=== PATIENT | female | born 1935 | race Caucasian/White ===

== ENCOUNTER 2016-12-18 13:28 | Inpatient (IN) | payer OTHER ==
[~2016-12-18] VITALS: Wt 68.0 kg
--- NOTE | ~2016-12-18 | PR ---
[place], [place] PROGRESS NOTE [id number] UN[facility] #: [id number] ROOM: 311 DOCTOR: Radha RG,JANI BIRTHDATE: [birth year] DOS: 12/24/2016 The patient seen and spoke with the staff. Per staff, the patient slept well last night. She did not eat at all yesterday, but she is less sleepy today. The patient was pleasant, cooperative. She was in a Carmen chair. She was sitting in the day area. When I asked how she was doing, she said that "I am ill." When I asked her to elaborate, she did not answer any of my questions afterwards. MENTAL STATUS EXAMINATION: The patient was alert, but not forthcoming, not able to do any full mental status examination as she did not speak with me fully. ASSESSMENT: 1. Dementia with behavioral disturbances. 2. Impulse control disorder. PLAN: 1. Continue current medication and care. 2. Encourage p.o. intake. 3. Continue redirection. JANI RG MD CM:JEEVAN 31 0 Radha RG 12/25/16201 interface
--- NOTE | ~2016-12-18 | PR ---
[place], [place] PROGRESS NOTE NAME: LUCILLE EMERY UNIT #: [id number] ROOM: 311 DOCTOR: Radha RG,JANI BIRTHDATE: [birth year] DOS: 12/27/2016 PSYCHIATRIC PROGRESS NOTE SUBJECTIVE: The patient seen and spoke with the staff. Per staff, the patient got p.r.n. Ativan last night. She ate a pudding and applesauce and reportedly, she is doing much better. She is much more interactive now. Her IV fluid also got ended last night. Reportedly, she is getting IV antibiotic every day. The patient was in the day area. She was in a Carmen chair. I tried to wake her up, but not able to do so. She was in a deep sleep because she got the Ativan p.r.n. last night. She does not seem to be in any distress. MENTAL STATUS EXAMINATION: Not able to do for full mental status examination as the patient was in deep sleep. ASSESSMENT: Dementia with behavioral disturbances. PLAN: 1. Continue current medication and care. 2. Continue redirection. 3. Supportive care. 4. Medical team is following for any acute medical issues. JANI RG MD CM:PNTRANS [id number] Radha RG 12/27/16 1036 interface
--- NOTE | ~2016-12-18 | PR ---
[place], [place] PROGRESS NOTE NAME: LUCILLE EMERY UNIT #: [id number] ROOM: 311 DOCTOR: Radha RG,JANI BIRTHDATE: [birth year] DOS: 12/29/2016 PSYCHIATRIC PROGRESS NOTE SUBJECTIVE: The patient seen and spoke with the staff. Per staff, the patient is eating more, much more animated than before. She ate 10% of lunch, 10% of dinner, 550 mL of liquid. She also got some p.r.n. Ativan because of increased agitation, because she was combative with care. The patient was sitting in a Carmen chair in front of the nursing station. When I called her name, she got up and said yes, but then did not answer any of my questions, even though her eyes were open. MENTAL STATUS EXAMINATION: The patient was alert, not able to do full mental status examination as patient refused to talk with me. PLAN: 1. Continue current medication and care. 2. Continue redirection. 3. Supportive care. JANI RG MD CM:JEEVAN [id number] 1254 Radha RG 12/30/16 1254 interface
--- NOTE | ~2016-12-18 | PR ---
[place], [place] PROGRESS NOTE NAME: LUCILLE EMERY UNIT #: [id number] ROOM: 311 DOCTOR: Radha RG,JANI BIRTHDATE: [birth year] DOS: 12/26/2016 PSYCHIATRIC PROGRESS NOTE SUBJECTIVE: The patient seen and I spoke with the staff. Per staff, the patient is not eating at all, not arousable earlier in the day, but she was seen by the medical team and she was started on IV fluid. The medical team actually felt that she is still appropriate for the psychiatric unit and reportedly do not want to admit her to the Medical floor. The patient was in her room. She was talking. She looks much brighter today as probably she was getting the IV fluid. When I called her name, she did not answer any of my question, but apparently she was talking to herself, which is mostly nonsensical. As per the nursing staff, she was catheterized and urine culture and sensitivity was sent. MENTAL STATUS EXAMINATION: The patient was somewhat sleepy, talking to herself and did not seem to be in any distress. She is not able to do the full mental status examination. ASSESSMENT: Dementia with behavioral disturbances; impulse control disorder per history. PLAN: 1. I already have discontinued all of her psychotropic medications, which includes Depakote. 2. Need to get supportive care. 3. Medical team is already involved. I will call them again and we will talk with house carpenter helper to see if there is any need for the patient to transfer to the Medical floor or not. JANI RG MD CM:JEEVAN 0 Radha RG 12/27/16201 interface
--- NOTE | ~2016-12-18 | WRIGHTHP ---
[place], [place] PATIENT HISTORY AND PHYSICAL EXAM [id number] UN[facility] #: [id number] ROOM: 311 DOCTOR: LYNN WADE MD BIRTHDATE: [birth year] DOS: 12/18/2016 CHIEF COMPLAINT: "Hey, I need help. I have to pee." HISTORY OF PRESENT ILLNESS: This is a 81-year-old white female who was brought into the hospital by her due to worsening behaviors. The patient apparently has a diagnosis of Alzheimer's dementia and is becoming increasingly more difficult to be cared for at home. While at home, she is becoming both verbally and physically aggressive and frankly combative. She is putting herself and others at harm. Her behavior has become so progressively worse that her stated on admission, "I just can't handle her" and they are seeking crisis stabilization as well as possible placement. PAST MEDICAL HISTORY: Remarkable for GERD, chronic pain, hypertension, hypothyroidism, irritable bowel syndrome and the diagnosis of Alzheimer's dementia. There is also a possible history of either cervical or uterine cancer. MENTAL STATUS: The patient is alert and oriented to self only. She was not able to engage readily in meaningful conversation and tended to be fragmented and disjointed. Her speech with me was very disorganized. More often than not, she did not answer my questions, but rather went off on a tangent of her own. Her responses again were short and simple. Thoughts fragmented. There are no symptoms suggestive of hypomania or sophy. There are no auditory or visual hallucinations. No delusions were voiced. There is no paranoia. She does process extremely slowly. Short and intermediate memory are grossly disturbed. DIAGNOSIS: Impulse control disorder, not otherwise specified, and Alzheimer's dementia. PLAN: I have discontinued her Aricept in lieu of Exelon patch. I will rapidly titrate this to its maximum dose to improve and sustain memory, behavior and ADLs. I have continued her on Namenda 10 mg twice daily. I have started her on Depakote 250 mg twice daily and 500 mg at bedtime to decrease some of her impulsivity and aggressiveness. We will engage her in individual and tavares milieu activity. I will discuss the case with social service technician and work on possible placement for her. We will discharge then to the least restrictive environment when psychiatrically stable. [place], [place] PATIENT HISTORY AND PHYSICAL EXAM NAME: LUCILLE EMERY UNIT #: [id number] ROOM: 311 DOCTOR: LYNN WADE MD BIRTHDATE: [birth year] LYNN WADE MD CM:HISPHYS:PATIENT HISTORY AND PHYSICAL EXAMINATION 4 LYNN WADE MD 12/19/16744 interface
--- NOTE | ~2016-12-18 | PR ---
[place], [place] PROGRESS NOTE [id number] UNIT #: [id number] ROOM: 311 DOCTOR: Radha RG,JANI BIRTHDATE: [birth year] DOS: 12/23/2016 PSYCHIATRIC PROGRESS NOTE. SUBJECTIVE: The patient seen and I spoke with the staff. Per staff, the patient slept well last night, took all of her medications, but this a.m. refused all of her medication and seems to be confused. Per nursing staff, she is not eating her full meals, sometimes she is skipping her meal also. No overt behavioral problems or issues. The patient was in the Carmen chair in front of the nursing station. She was in deep sleep, not able to wake her up. She just looked at me for a brief period, but then fall back to sleep again. MENTAL STATUS EXAMINATION: Not able to do the full mental status examination because the patient was sleeping. ASSESSMENT: 1. Dementia with behavioral disturbances. 2. Impulse control disorder. PLAN: 1. I will reduce her Depakote. 2. Continue other medication. 3. Continue redirection. 4. Intake and output check. 5. Need to involve the medical team and make sure the patient is not medically compromised. JANI RG MD CM:PNEPIFANIO [id number] Radha RG 12/23/16 2347 interface
--- NOTE | ~2016-12-18 | PR ---
[place], [place] PROGRESS NOTE NAME: LUCILLE EMERY UNIT #: [id number] ROOM: 311 DOCTOR: Radha RG,JANI BIRTHDATE: [birth year] DOS: 12/28/2016 PSYCHIATRIC PROGRESS NOTE SUBJECTIVE:. The patient seen and spoke with the staff. Per staff, the patient is doing "okay." She did not eat her breakfast or lunch yesterday or the breakfast today. She ate dinner, 15% of dinner and she was not getting up this morning. Her blood pressure was 128/76 and pulse was 84, pulse ox is more than 96. When I went to her room, the patient was in her bed. I was not able to wake her up. When the nursing went and tried to wake her up, she got up and asked us that are we going to keep her over here. I told the nursing staff to wake her up and take her to the day area. Later on, the nursing staff came back and told me that in the process of getting up to the Carmen chair, the patient became very alert, asking for cookies and getting little irritated when they were trying to move her to one place to other. MENTAL STATUS EXAMINATION: The patient was pleasant, cooperative. She was alert. She did not answer how she is doing when asked about mood. She looks comfortable, not in any distress. She does not seem to be responding to stimuli. No overt delusional paranoid noted. She is not suicidal or homicidal. Insight and judgment impaired. ASSESSMENT: Dementia with behavioral disturbances, impulse control disorder per history. PLAN: 1. Continue current medication and care. 2. Continue redirection. 3. Supportive care. 4. Encourage p.o. intake. 5. Medical team is following due to her medical issues. [place], [place] PROGRESS NOTE NAME: LUCILLE EMERY UNIT #: [id number] ROOM: 311 DOCTOR: Radha RG,JANI BIRTHDATE: [birth year] JANI RG MD CM:JEEVAN 1040 1646 aRdha RG 12/28/16 1646 interface
--- NOTE | ~2016-12-18 | EKG ---
[place], [place] ELECTROCARDIOGRAM REPORT NAME: LUCILLE EMERY UNIT #: [id number] ROOM: 311 DOCTOR: NICK SOLORZANO MD BIRTHDATE: [birth year] DOS: 12/18/2016 TIME: 1356 hours. FINDINGS: 1. Normal sinus rhythm at 78 beats per minute. 2. The tracing is normal. 3. No previous tracing is available for comparison. NICK SOLORZANO MD CM:EKGRPT:ELECTROCARDIOGRAM REPORT [id number] NICK SOLORZANO MD
--- NOTE | ~2016-12-18 | PR ---
[place], [place] PROGRESS NOTE [id number] UNIT #: [id number] ROOM: 311 DOCTOR: LYNN WADE MD BIRTHDATE: [birth year] DOS: 12/20/2016 CHIEF COMPLAINT: "Hey, Hey honey help me here, help me." SUMMARY OF THE VISIT: The patient was interviewed. She sat in the group therapy room in a Carmen chair with her breakfast in front for her. The breakfast had been cut for her. She, however, was very confused and disoriented and did not seem to know what to do with her breakfast, instead she kept yelling wildly. Even when I approached her and attempted to redirect, she continued to yell in a very loud voice for assistance. She did eventually calm when I told her I would send in 1 of the aides to help her. Nurses report she continues to exhibit extreme mood lability and agitation that tends to worsen in the evening hours. MENTAL STATUS: She is alert and oriented to self only. She is very confused and disoriented. Her responses often have nothing to do with the questions asked of her. She is fragmented and disjointed easily agitated, but did redirect. Memory is very poor. PLAN: I will go ahead and increase her Depakote from 250 mg twice a day and 500 mg at bedtime to 500 mg 3 times a day given her extreme mood lability. I will also increase Exelon patch from 4.6 to 9.5 mg a day as I trend up to the 13.3 mg target dose to improve or maintain ADLs, behavior and cognition. Screening examinations upon admission showed her to have a low normal B12 level of 294, which I will go ahead and treat prevent B12 deficiency, dementia. I will give her an injection of vitamin B12 of 1000 mcg IM today. We will engage her in individual and tavares milieu activity, returning to the least restrictive environment when stable. LYNN WADE MD CM:PNTRANS 0836 131 LYNN WADE MD 12/20/16 1312 interface
--- NOTE | ~2016-12-18 | PR ---
[place], [place] PROGRESS NOTE [id number] UN[facility] #: [id number] ROOM: 311 DOCTOR: Radha RG,JANI BIRTHDATE: [birth year] DOS: 12/25/2016 Patient seen and spoke with the staff. Per staff, patient ate 10% of her dinner last night, also finished a whole Boost. She slept all night. No behavioral problems or issues. The patient was in the day area. She was in deep sleep, not able to wake her up. She seems to be not in any distress. It should be noted that the patient was seen by the medical team for the fact that she was not eating well, but per medical team patient is doing okay. There is no acute concern. MENTAL STATUS EXAMINATION: Not able to do a full mental status examination. ASSESSMENT: 1. Dementia with behavioral disturbances. 2. Impulse control disorder. PLAN: 1. Continue current medication and care. 2. Continue redirection. 3. Encourage p.o. intake. JANI RG MD CM:JEEVAN 52 Radah RG 12/26/1653 interface
--- NOTE | ~2016-12-18 | PR ---
[place], [place] PROGRESS NOTE NAME: LUCILLE EMERY UNIT #: [id number] ROOM: 311 DOCTOR: LYNN WADE MD BIRTHDATE: [birth year] DOS: 12/21/2016 CHIEF COMPLAINT: "Hey, help me here." SUMMARY OF THE VISIT: The patient was interviewed as she sat in the dining area near peers. She engaged greatly in conversation. She was fairly pleasant, but confused. Her responses did not always match the question asked of her. She exhibited no agitation towards me. Nurses' however, report she is very resisted to care and is noncompliant with multiple aspects of her care including her medication, which she often spits out. She has not been having a good oral intake either and has not been eating well and nurses do request some boost or Ensure or some type of nutritional supplement. MENTAL STATUS: She is alert and oriented to person, possibly place, but not time. Mood does seem to be somewhat depressed and with a constricted range. Affect at times is inappropriate. Her responses are disjointed and fragmented, short and simple. There is no overt hypomania or psychosis. Short term memory is poor and she processes slowly. PLAN: I will maintain her current level of Exelon patch and Namenda. I will add Remeron 15 mg at bedtime. We will check with the pharmacy to see if we can get the sold tape. We will check a valproic acid level in the a.m. and also order boost or a nutritional supplement to increase her calorie intake. LYNN WADE MD CM:PNTRANS 0845 LYNN WADE MD 12/21/1625 interface
--- NOTE | ~2016-12-18 | DS ---
[place], [place] DISCHARGE SUMMARY NAME: LUCILLE EMERY [facility] #: [id number] UNIT #: [id number] ROOM: 311 DOCTOR: aRdha RG,JANI BIRTHDATE: [birth year] DOS: 12/31/2016 PSYCHIATRIC DISCHARGE SUMMARY HISTORY OF PRESENT ILLNESS: This is a 81-year-old white female who was brought into the hospital by her due to worsening behaviors. The patient apparently has a diagnosis of Alzheimer's dementia and is becoming increasingly more difficult to be cared for at home. While at home, she is becoming both verbally and physically aggressive and frankly combative. She is putting herself and others at harm. Her behavior has become so progressively worse that her stated on admission, "I just can't handle her" and they are seeking crisis stabilization as well as possible placement. PAST MEDICAL HISTORY: Remarkable for GERD, chronic pain, hypertension, hypothyroidism, irritable bowel syndrome and the diagnosis of Alzheimer's dementia. There is also a possible history of either cervical or uterine cancer. MENTAL STATUS: The patient is alert and oriented to self only. She was not able to engage readily in meaningful conversation and tended to be fragmented and disjointed. Her speech with me was very disorganized. More often than not, she did not answer my questions, but rather went off on a tangent of her own. Her responses again were short and simple. Thoughts fragmented. There are no symptoms suggestive of hypomania or sophy. There are no auditory or visual hallucinations. No delusions were voiced. There is no paranoia. She does process extremely slowly. Short and intermediate memory are grossly disturbed. HOSPITAL COURSE: The patient got admitted for stabilization. She was started on Depakote twice a day, which initially she tolerated well, but later on, the Depakote made her very sleepy. She was seen by the medical team during her stay. She had some infective process going on. She was started on antibiotic. During her stay, the patient initially was very sedated. She was not eating well. She was not drinking well also, so we placed her on I's and O's. We discontinued all of her psychotropic medication. She was started on IV fluids also by the medical team. Gradually, the patient turned around from her sedation point of view, she became more responsive. She started eating and drinking well. In the meantime, the patient started having some medical issues. There was blood in the urine. The medical team was consulted and the medical team felt that it will be in her best interest if she gets admitted to the medical floor. The treatment team also felt that the patient can be discharged to the medical floor on 12/31/2016. MENTAL STATUS EXAMINATION AT DISCHARGE: The patient was pleasant, cooperative. She was alert. She described her mood as, "I'm fine." Affect was flat. Thought processes with confabulation. Denied auditory or visual hallucination. No overt delusion noted. Denied suicidal ideation, intent or plan. She also denied homicidal ideation, intent or plan. Insight and judgment impaired. ASSESSMENT: Dementia with behavioral disturbances. [place], [place] DISCHARGE SUMMARY NAME: LUCILLE EMERY UNIT #: [id number] ROOM: [facility] DOCTOR: Radha RG MAHBOOB BIRTHDATE: [birth year] PLAN: 1. Continue current care. 2. Transfer the patient to the medical floor for further care and stabilization. JANI RG MD CM:ALLY [id number] [id number] Radha RG 01/01/17 0322 interface
--- NOTE | ~2016-12-18 | PR ---
[place], [place] PROGRESS NOTE [id number] UN[facility] #: [id number] ROOM: 311 DOCTOR: Radha RG,JANI BIRTHDATE: [birth year] DOS: 12/30/2016 PSYCHIATRIC PROGRESS NOTE SUBJECTIVE: The patient seen and spoke with the staff. Per staff, the patient is doing well. No behavioral problems or issues. She ate almost 40% yesterday. She is also eating her Boost. She still yells out at times, but no other behavioral problems or issues. She is easily redirectable. She is still getting her antibiotic. The patient was pleasant and cooperative. She was in a Carmen chair in the dining area. She was in a deep sleep. I was not able to wake her up. She does not seem to be in any distress. MENTAL STATUS EXAMINATION: Not able to do the full mental status examination as she was in deep sleep. She seems not to be in any distress. ASSESSMENT: Dementia with behavioral disturbances. PLAN: 1. Continue current medication and care. 2. Continue redirection. 3. Supportive care. JANI RG MD CM:JEEVAN 0911 1322 Radha RG 12/30/16 1321 interface
[2016-12-18 13:36] VITALS: BP 118/60
[2016-12-18 14:12] LABS: MEAN CELL VOLUME 93.9 fl (81.0-99.0); MEAN CORPUSCULAR HGB 30.4 pg (27.0-31.0); MEAN CORPUSCULAR HGB CONC 32.4 g/dl (33.0-37.0); MEAN PLATELET VOLUME 10.2 fl (9.6-12.3); PLATELET COUNT AUTOMATED 186 10*3/uL (130-400); RED BLOOD COUNT 3.62 10*6/uL (4.10-5.10); RED CELL DISTRI WIDTH 13.4 % (0-14.5); WHITE BLOOD COUNT 5.5 10*3/uL (4.8-10.8)
[2016-12-18 14:18] LABS: PROTHROMBIN TIME 10.3 SECONDS (9.0-12.4)
[2016-12-18 14:29] LABS: ALBUMIN 3.1 gm/dl (3.1-4.5); ALKALINE PHOSPHATASE 93 U/L (45-117); BILIRUBIN, TOTAL 0.4 mg/dl (0.2-1.0); BUN 21 mg/dl (7-24); CARBON DIOXIDE 26 mmol/L (21-32); CHLORIDE 112 mmol/L (98-107); CKMB 1.5 ng/ml (0.5-3.6); CPK 101 U/L (26-192); EST GLOM FILT AFRICAN AMERICAN > 60 ml/min; GLUCOSE 109 mg/dL (65-99); MAGNESIUM 2.1 mg/dL (1.5-2.1); POTASSIUM 3.8 mmol/L (3.5-5.1); SGOT/AST 20 IU/L (3-35); SGPT/ALT 19 U/L (12-78); SODIUM 142 mmol/L (136-145); TOTAL PROTEIN 6.4 gm/dL (6.4-8.2)
[2016-12-18 14:32] LABS: C-REACTIVE PROTEIN < 0.29 MG/DL (0-0.3); TROPONIN I < 0.015 ng/ml (<0.045)
[2016-12-18 15:18] LABS: BASOPHIL # 0.1 10*3/uL (0-0.1); BASOPHILS 2 % (0-1); EOSINOPHIL # 1.3 10*3/uL (0-0.4); EOSINOPHILS 23 % (1-4); LYMPHOCYTE # 1.6 10*3/uL (1.3-4.4); MONOCYTE # 0.2 10*3/uL (0.1-1.0); NEUTROPHIL # 2.3 10*3/uL (2.3-7.9); NEUTROPHILS 42 % (47-73); PLATELET SUFFICIENCY NORMAL (NORMAL); TOTAL CELLS COUNTED 100 #CELLS
[2016-12-18 15:25] VITALS: BP 132/71
[2016-12-18 15:36] LABS: BILIRUBIN NEGATIVE (NEGATIVE); BLOOD 1+ (NEGATIVE); CLARITY SL CLOUDY (CLEAR); COLOR YELLOW (YELLOW); GLUCOSE NEGATIVE (NEGATIVE); KETONE NEGATIVE (NEGATIVE); LEUKO ESTERASE NEGATIVE (NEGATIVE); NITRITE NEGATIVE (NEGATIVE); PH 5.5 (5.0-9.0); PROTEIN NEGATIVE (NEGATIVE); SPECIFIC GRAVITY >= 1.030 (1.005-1.030)
[2016-12-18 16:00] LABS: BACTERIA 2+; URINE REFLEX COMMENT YES (NO)
[2016-12-18] MEDS ORDERED: PEPCID20 MG PO (18:37)
[2016-12-18] MEDS ORDERED: NAMENDA XR21 M1 PO (18:38)
[2016-12-18] MEDS ORDERED: SYNTHROID,LEVO88 MCG PO (18:40)
[2016-12-18] MEDS ORDERED: LINZESS145 MC1 PO (18:41)
[2016-12-18] MEDS ORDERED: HALDOL0.5 MG PO (18:41)
[2016-12-18] MEDS ORDERED: PERCOCET 325 MG1 TA5 PO (18:42)
[2016-12-18] MEDS ORDERED: NORVASC5 MG PO (18:42)
[2016-12-19] MEDS ORDERED: RESTORIL15 MG PO (01:45)
[2016-12-19 07:45] LABS: THYROID STIM HORMONE (HS) 0.227 uIU/ml (0.358-4.75)
[2016-12-19 08:00] VITALS: BP 126/63
[2016-12-19 08:12] LABS: VITAMIN D, 25-HYDROXY 25.7 ng/mL (30-100)
[2016-12-19 20:11] VITALS: BP 114/54
[2016-12-20 08:15] VITALS: BP 138/63
[2016-12-20 20:00] VITALS: BP 114/62
[2016-12-21 07:37] LABS: BILIRUBIN NEGATIVE (NEGATIVE); BLOOD 1+ (NEGATIVE); CLARITY CLEAR (CLEAR); COLOR YELLOW (YELLOW); GLUCOSE NEGATIVE (NEGATIVE); KETONE TRACE (NEGATIVE); LEUKO ESTERASE NEGATIVE (NEGATIVE); NITRITE NEGATIVE (NEGATIVE); PROTEIN NEGATIVE (NEGATIVE); SPECIFIC GRAVITY <= 1.005 (1.005-1.030)
[2016-12-21 07:44] LABS: URINE REFLEX COMMENT YES (NO)
[2016-12-21 07:56] VITALS: BP 125/61
[2016-12-21 20:03] VITALS: BP 153/79
[2016-12-22 08:12] VITALS: BP 126/58
[2016-12-22 20:00] VITALS: BP 138/96
[2016-12-23 08:02] VITALS: BP 134/75
[2016-12-23 20:11] VITALS: BP 154/78
[2016-12-24 08:09] VITALS: BP 145/74
[2016-12-24 20:00] VITALS: BP 140/77
[2016-12-25 08:01] VITALS: BP 125/68
[2016-12-25 20:05] VITALS: BP 135/69
[2016-12-26 07:48] VITALS: BP 126/60
[2016-12-26 08:17] LABS: BASO # 0.1 10*3/uL (0.0-0.1); BASO % 1.1 % (0.0-1.0); EOS # 0.7 10*3/uL (0.0-0.4); EOS % 10.2 % (1.0-4.0); HEMOGLOBIN 14.7 g/dl (12.0-16.0); LYMPH # 1.1 10*3/uL (1.3-4.4); LYMPH % 16.7 % (27.0-41.0); MEAN CORPUSCULAR HGB 30.4 pg (27.0-31.0); MEAN CORPUSCULAR HGB CONC 32.7 g/dl (33.0-37.0); MEAN PLATELET VOLUME 10.3 fl (9.6-12.3); MONO # 0.8 10*3/uL (0.1-1.0); MONO % 11.9 % (3.0-9.0); NEUT # 3.8 10*3/uL (2.3-7.9); NEUT % 59.9 % (47.0-73.0); PLATELET COUNT AUTOMATED 189 10*3/uL (130-400); RED BLOOD COUNT 4.84 10*6/uL (4.10-5.10); RED CELL DISTRI WIDTH 13.7 % (0-14.5); WHITE BLOOD COUNT 6.4 10*3/uL (4.8-10.8)
[2016-12-26 08:31] LABS: ALKALINE PHOSPHATASE 105 U/L (45-117); BILIRUBIN, TOTAL 0.6 mg/dl (0.2-1.0); BUN 30 mg/dl (7-24); CARBON DIOXIDE 29 mmol/L (21-32); CHLORIDE 108 mmol/L (98-107); EST GLOM FILT AFRICAN AMERICAN > 60 ml/min; GLUCOSE 95 mg/dL (65-99); MAGNESIUM 2.7 mg/dL (1.5-2.1); PHOSPHOROUS 3.2 mg/dL (2.5-4.9); POTASSIUM 3.9 mmol/L (3.5-5.1); SGOT/AST 26 IU/L (3-35); SGPT/ALT 21 U/L (12-78); SODIUM 144 mmol/L (136-145); TOTAL PROTEIN 6.9 gm/dL (6.4-8.2)
[2016-12-26 18:10] LABS: BILIRUBIN NEGATIVE (NEGATIVE); BLOOD TRACE-INTACT (NEGATIVE); CLARITY SL CLOUDY (CLEAR); COLOR YELLOW (YELLOW); GLUCOSE NEGATIVE (NEGATIVE); KETONE 2+ (NEGATIVE); LEUKO ESTERASE TRACE (NEGATIVE); NITRITE NEGATIVE (NEGATIVE); PROTEIN NEGATIVE (NEGATIVE); SPECIFIC GRAVITY 1.015 (1.005-1.030)
[2016-12-26 18:18] LABS: BACTERIA 1+
[2016-12-26 18:19] LABS: EPITHELIAL CELLS 51-100; RBC 16-20 rbc/hpf (0-2)
[2016-12-26 20:00] VITALS: BP 133/77
[2016-12-27 08:19] VITALS: BP 126/70
[2016-12-27 20:04] VITALS: BP 153/78
[2016-12-28 08:36] VITALS: BP 128/76
[2016-12-28 20:17] VITALS: BP 125/64
[2016-12-29 08:00] VITALS: BP 129/61
[2016-12-29 10:11] VITALS: BP 129/61
[2016-12-29 10:12] VITALS: BP 129/61
[2016-12-29 20:00] VITALS: BP 116/78
[2016-12-30 08:02] VITALS: BP 132/63
[2016-12-30 19:50] VITALS: BP 115/63
[2016-12-31 08:00] VITALS: BP 128/80
[2016-12-31 17:14] LABS: GLUCOSE 101 mg/dL (65-99)
[2016-12-31 17:54] LABS: BASO # 0.1 10*3/uL (0.0-0.1); BASO % 0.6 % (0.0-1.0); EOS # 0.2 10*3/uL (0.0-0.4); EOS % 1.6 % (1.0-4.0); HEMOGLOBIN 14.7 g/dl (12.0-16.0); MEAN CELL VOLUME 92.6 fl (81.0-99.0); MEAN CORPUSCULAR HGB 30.2 pg (27.0-31.0); MEAN CORPUSCULAR HGB CONC 32.7 g/dl (33.0-37.0); MEAN PLATELET VOLUME 11.1 fl (9.6-12.3); MONO # 1.2 10*3/uL (0.1-1.0); MONO % 12.9 % (3.0-9.0); NEUT # 7.1 10*3/uL (2.3-7.9); NEUT % 74.5 % (47.0-73.0); PLATELET COUNT AUTOMATED 150 10*3/uL (130-400); RED BLOOD COUNT 4.86 10*6/uL (4.10-5.10); RED CELL DISTRI WIDTH 13.6 % (0-14.5); WHITE BLOOD COUNT 9.5 10*3/uL (4.8-10.8)
[2016-12-31 18:15] LABS: CHLORIDE 102 mmol/L (98-107); POTASSIUM 4.9 mmol/L (3.5-5.1); SODIUM 139 mmol/L (136-145)
[2016-12-31 18:16] LABS: ALBUMIN 2.9 gm/dl (3.1-4.5); ALKALINE PHOSPHATASE 124 U/L (45-117); BILIRUBIN, TOTAL 0.7 mg/dl (0.2-1.0); TOTAL PROTEIN 7.1 gm/dL (6.4-8.2)
[2016-12-31] MEDS ORDERED: RIVASTIGMINE1 EAC1 T (19:29)
[2016-12-31 20:07] VITALS: BP 138/66
[2016-12-31] MEDS ORDERED: EXELON1 EAC1 T (22:05)
[2016-12-31] MEDS ORDERED: VITAMIN D31000 UNI1 PO (22:07)
[2016-12-31] MEDS ORDERED: ATIVAN1 MG PO (22:09)
[2017-01-01 10:40] LABS: BUN 20 mg/dl (7-24)
[2017-01-01 10:41] LABS: CARBON DIOXIDE 31 mmol/L (21-32); EST GLOM FILT AFRICAN AMERICAN > 60 ml/min
[2017-01-01 10:42] LABS: SGOT/AST 28 IU/L (3-35); SGPT/ALT 26 U/L (12-78)
== END 2016-12-31 20:10 | disposition short-term general hospital (02) | DRG 57 ==
LOC: ED 13:28 → 3N 17:02 → EDHOLD 17:02 → 3N 17:30
PROVIDERS: Emergency Medicine; Family Medicine; Internal Medicine; Psychiatry & Neurology Psychiatry
DX: G30.9 Alzheimer's disease, unspecified (principal); F02.81 Dementia in other diseases classified elsewhere, unspecified severity, with behavioral disturbance; R82.71 Bacteriuria; F63.9 Impulse disorder, unspecified; I10 Essential (primary) hypertension; E03.9 Hypothyroidism, unspecified; K21.9 Gastro-esophageal reflux disease without esophagitis; K58.9 Irritable bowel syndrome, unspecified; G89.29 Other chronic pain; G47.00 Insomnia, unspecified; Z79.899 Other long term (current) drug therapy

== ENCOUNTER 2016-12-31 21:03 | Inpatient (IN) | payer OTHER ==
[~2016-12-31] VITALS: Ht 162.6 cm; Wt 69.9 kg
[~2016-12-31 21:03] MED LIST: HALDOL0.5 MG PO; LINZESS145 MC1 PO; NAMENDA XR21 M1 PO; NORVASC5 MG PO; PEPCID20 MG PO; PERCOCET 325 MG1 TA5 PO; RESTORIL15 MG PO; RIVASTIGMINE1 EAC1 T; SYNTHROID,LEVO88 MCG PO
[2016-12-31 21:15] VITALS: BP 115/80
[2016-12-31] MEDS ORDERED: EXELON1 EAC1 T (22:05)
[2016-12-31] MEDS ORDERED: VITAMIN D31000 UNI1 PO (22:07)
[2016-12-31] MEDS ORDERED: ATIVAN1 MG PO (22:09)
[2016-12-31 23:32] LABS: BILIRUBIN NEGATIVE (NEGATIVE); BLOOD 2+ (NEGATIVE); CLARITY CLEAR (CLEAR); COLOR YELLOW (YELLOW); GLUCOSE NEGATIVE (NEGATIVE); KETONE NEGATIVE (NEGATIVE); LEUKO ESTERASE TRACE (NEGATIVE); NITRITE NEGATIVE (NEGATIVE); PH 7.5 (5.0-9.0); PROTEIN NEGATIVE (NEGATIVE); UROBILINOGEN 0.2 E.U./dl (0.2-1.0)
[2016-12-31 23:44] LABS: RBC 16-20 rbc/hpf (0-2)
[2016-12-31 23:45] LABS: URINE REFLEX COMMENT YES (NO); YEAST TRACE
[2017-01-01] VITALS: BP 139/75
[2017-01-01 05:52] LABS: ALBUMIN 2.7 gm/dl (3.1-4.5); BUN 16 mg/dl (7-24); CARBON DIOXIDE 28 mmol/L (21-32); CHLORIDE 105 mmol/L (98-107); GLUCOSE 88 mg/dL (65-99); SODIUM 141 mmol/L (136-145)
[2017-01-01 05:56] LABS: ALKALINE PHOSPHATASE 104 U/L (45-117); BILIRUBIN, TOTAL 0.7 mg/dl (0.2-1.0); EST GLOM FILT AFRICAN AMERICAN > 60 ml/min; SGOT/AST 27 IU/L (3-35); SGPT/ALT 21 U/L (12-78); TOTAL PROTEIN 6.3 gm/dL (6.4-8.2)
[2017-01-01 06:06] LABS: POTASSIUM 3.8 mmol/L (3.5-5.1)
[2017-01-01 06:07] LABS: BASO # 0.1 10*3/uL (0.0-0.1); BASO % 0.8 % (0.0-1.0); EOS # 0.4 10*3/uL (0.0-0.4); EOS % 4.7 % (1.0-4.0); HEMATOCRIT 40.3 % (37.0-47.0); HEMOGLOBIN 13.4 g/dl (12.0-16.0); LYMPH # 1.3 10*3/uL (1.3-4.4); LYMPH % 15.1 % (27.0-41.0); MEAN CORPUSCULAR HGB 30.6 pg (27.0-31.0); MEAN CORPUSCULAR HGB CONC 33.3 g/dl (33.0-37.0); MEAN PLATELET VOLUME 11.3 fl (9.6-12.3); MONO % 12.1 % (3.0-9.0); NEUT # 5.6 10*3/uL (2.3-7.9); NEUT % 66.9 % (47.0-73.0); PLATELET COUNT AUTOMATED 154 10*3/uL (130-400); RED BLOOD COUNT 4.38 10*6/uL (4.10-5.10); RED CELL DISTRI WIDTH 13.5 % (0-14.5); WHITE BLOOD COUNT 8.3 10*3/uL (4.8-10.8)
[2017-01-01 06:42] LABS: HEMOGLOBIN A1c 5.7 % (4.8-5.6)
[2017-01-01 06:43] LABS: PROTHROMBIN TIME 10.7 SECONDS (9.0-12.4)
[2017-01-01 07:41] LABS: ALBUMIN 2.7 gm/dl (3.1-4.5); ALKALINE PHOSPHATASE 111 U/L (45-117); BILIRUBIN, TOTAL 0.7 mg/dl (0.2-1.0); BUN 14 mg/dl (7-24); CARBON DIOXIDE 26 mmol/L (21-32); CHLORIDE 105 mmol/L (98-107); EST GLOM FILT AFRICAN AMERICAN > 60 ml/min; GLUCOSE 88 mg/dL (65-99); POTASSIUM 3.7 mmol/L (3.5-5.1); SGOT/AST 25 IU/L (3-35); SGPT/ALT 21 U/L (12-78); SODIUM 141 mmol/L (136-145); TOTAL PROTEIN 6.3 gm/dL (6.4-8.2)
[2017-01-01 08:00] VITALS: BP 156/78
[2017-01-01 08:24] LABS: VITAMIN D, 25-HYDROXY 28.8 ng/mL (30-100)
[2017-01-01 08:25] LABS: FOLIC ACID 10.61 ng/mL (>5.38)
[2017-01-01 12:00] VITALS: BP 160/84
[2017-01-01 16:00] VITALS: BP 153/88
== END 2017-01-01 20:29 | DRG 695 ==
LOC: 4E 21:03
PROVIDERS: Internal Medicine; Internal Medicine Nephrology
DX: R31.9 Hematuria, unspecified (principal); E43 Unspecified severe protein-calorie malnutrition; F02.81 Dementia in other diseases classified elsewhere, unspecified severity, with behavioral disturbance; G30.9 Alzheimer's disease, unspecified; K21.9 Gastro-esophageal reflux disease without esophagitis; I10 Essential (primary) hypertension; E03.9 Hypothyroidism, unspecified; E55.9 Vitamin D deficiency, unspecified; G89.29 Other chronic pain; K58.9 Irritable bowel syndrome, unspecified; Z79.899 Other long term (current) drug therapy; Z85.59 Personal history of malignant neoplasm of other urinary tract organ; Z68.26 Body mass index [BMI] 26.0-26.9, adult; Z85.41 Personal history of malignant neoplasm of cervix uteri